=== PATIENT | male | born 1945 | race Caucasian/White ===

== ENCOUNTER → 2017-06-23 | Outpatient (CLI) | payer MEDICARE, BC ==
[~2017-06-23] MED LIST: ASCO100019 PO; ASPI325T17 PO; GLUC-113 PO; HYDR1TAB12 PO; MULT-257 PO; OXYC-306 PO
[2017-06-23 09:23] LABS: ALBUMIN 4.1 g/dL (3.4-5.0); ANION GAP 6 mmol/L (5-15); CALCIUM 8.7 mg/dL (8.5-10.1); CHLORIDE 107 mmol/L (98-107)
[2017-06-23 09:27] LABS: ALANINE AMINOTRANSFERASE 26 U/L (12-78); ALKALINE PHOSPHATASE 109 U/L (45-117); BILIRUBIN,TOTAL 1.2 mg/dL (0.2-1.0); CREATININE 0.77 mg/dL (0.7-1.3); TOTAL PROTEIN 7.6 g/dL (6.4-8.2)
[2017-06-23 09:52] LABS: MICROSCOPIC AUTO
[2017-06-23 09:54] LABS: CULTURE INDICATED? YES
[2017-06-23 09:57] LABS: BASOPHILS # (AUTO) 0.03 x10^3/uL (0-0.1); BASOPHILS % (AUTO) 1 % (0-1); EOSINOPHILS # (AUTO) 0.22 x10^3/uL (0-0.4); EOSINOPHILS % (AUTO) 4 % (1-7); LYMPHOCYTES # (AUTO) 1.37 x10^3/uL (1-3.4); LYMPHOCYTES % (AUTO) 25 % (22-44); MD NO; MEAN CORPUSCULAR HEMOGLOBIN 32.7 pg (27.5-34.5); MEAN CORPUSCULAR HGB CONC 34.2 g/dL (33.2-36.2); MEAN CORPUSCULAR VOLUME 95.7 fL (81-97); MONOCYTES # (AUTO) 0.56 x10^3/uL (0.2-0.8); MONOCYTES % (AUTO) 10 % (2-9); NEUTROPHILS # (AUTO) 3.32 x10^3/uL (1.8-6.8); NEUTROPHILS % (AUTO) 60 % (42-75); PLATELET COUNT 181 x10^3/uL (130-400); RED BLOOD COUNT 5.23 x10^6/uL (4.38-5.82); RED CELL DISTRIBUTION WIDTH 13.4 % (9.4-14.8)
== END | disposition home or self-care (01) ==
LOC: STAR 07:56
PROVIDERS: ATTEND Orthopaedic Surgery
DX: Z01.818 Encounter for other preprocedural examination (principal); M16.12 Unilateral primary osteoarthritis, left hip; R79.89 Other specified abnormal findings of blood chemistry; Z11.4 Encounter for screening for human immunodeficiency virus [HIV]; M25.559 Pain in unspecified hip; M51.36 Other intervertebral disc degeneration, lumbar region; I49.3 Ventricular premature depolarization
CPT/HCPCS: 36415; 80053; 81001; 85025; 86703; 87081; 87086; 87899; 93005; G0435

== ENCOUNTER 2017-06-27 07:09 | Inpatient (IN) | payer MEDICARE, BC ==
[~2017-06-27] VITALS: Ht 190.5 cm; Wt 105.2 kg
[~2017-06-27 07:09] MED LIST changes: +BACITRACIN 50,000 UNIT ONE; +EPINEPHRINE 1 MG/ML, 1ML ONE; +KETOROLAC 60 MG/2 ML ONE; +SODIUM CHLORIDE 0.9% 100 ML ONE; +TRANEXAMIC ACID 100 MG/ML, 10ML ONE; +morphine SULFATE/PF 1 MG/ML, 10ML ONE
[2017-06-27] MEDS ORDERED: VANCOMYCIN PMX 1GM/200ML 200 ML IV STA (07:33)
[2017-06-27] MEDS ORDERED: LACTATED RINGERS 1,000 ML IV SCH (07:35)
[2017-06-27 08:07] VITALS: BP 145/92
[2017-06-27] MEDS ORDERED: FENTANYL PF 250 MCG/5ML ONE (08:59)
[2017-06-27] MEDS ORDERED: MIDAZOLAM 1 MG/ML, 2ML ONE (08:59)
[2017-06-27] MEDS ORDERED: ROCURONIUM 10 MG/ML,10ML ONE (09:00)
[2017-06-27] MEDS ORDERED: PROPOFOL 10 MG/ML, 20ML ONE (09:00)
[2017-06-27] MEDS ORDERED: NEOSTIGMINE 1 MG/ML, 10ML ONE (09:01)
[2017-06-27] MEDS ORDERED: GLYCOPYRROLATE 0.4 MG/2 ML, 2ML ONE (09:01)
[2017-06-27] MEDS ORDERED: CEFAZOLIN 1,000 MG ONE ×2 (09:02)
[2017-06-27] MEDS ORDERED: SODIUM CHLORIDE 0.9% PF 10ML ONE (09:02)
[2017-06-27] MEDS ORDERED: ROPIvacaine/PF 0.2%, 20 ML ONE (09:28)
[2017-06-27] MEDS ORDERED: TRANEXAMIC ACID 1,000 MG in SODIUM CHLORIDE 0.9% 100 ML IV ONE (10:00)
[2017-06-27] MEDS ORDERED: HYDROmorphone 1 MG/ML, 1ML IV PRN (10:00)
[2017-06-27] MEDS ORDERED: LORazepam 2 MG/ML, 1ML IVPush PRN (10:00)
[2017-06-27] MEDS ORDERED: DIPHENHYDRAMINE 50 MG CAPSULE PO PRN (10:00)
[2017-06-27] MEDS ORDERED: ZOLPIDEM 5MG TABLET PO PRN (10:00)
[2017-06-27] MEDS ORDERED: morphine SULFATE 10 MG/ML, 1ML IVPush PRN (10:00)
[2017-06-27] MEDS ORDERED: hydrALAzine 20 MG/ML, 1ML IV PRN (10:00)
[2017-06-27] MEDS ORDERED: ONDANSETRON 2MG/ML, 2ML IVPush PRN ×2 (10:00)
[2017-06-27] MEDS ORDERED: OXYcodone 5 MG/5 ML ORAL.SOL UDC PO PRN (10:00)
[2017-06-27] MEDS ORDERED: LABETALOL 5MG/ML, 20ML IV PRN (10:00)
[2017-06-27] MEDS ORDERED: ACETAMINOPHEN 325 MG TABLET PO PRN ×2 (10:00)
[2017-06-27] MEDS ORDERED: PROMETHAZINE 25 MG/ML, 1ML IV PRN (10:00)
[2017-06-27] MEDS ORDERED: MEPERIDINE/PF 25MG/0.5ML IVPush PRN (10:00)
[2017-06-27] MEDS ORDERED: ONDANSETRON 2MG/ML, 2ML ONE (10:01)
[2017-06-27] MEDS ORDERED: DEXAMETHASONE 4 MG/ML, 1ML ONE ×2 (10:01)
[2017-06-27] MEDS ORDERED: FENTANYL PF 100 MCG/2ML ONE ×2 (10:45→12:07)
[2017-06-27] MEDS ORDERED: OXYcodone 5 MG/5 ML ORAL.SOL UDC ONE (12:07)
[2017-06-27] MEDS ORDERED: ACETAMINOPHEN 650 MG/20.3 ML UDC ONE (12:07)
[2017-06-27] MEDS: FENTANYL PF 100 MCG/2ML IV PRN ×2 (12:15→12:35)
[2017-06-27] MEDS ORDERED: KETOROLAC 30 MG/1 ML ONE (12:28)
[2017-06-27 14:48] VITALS: BP 122/79
[2017-06-27] MEDS: D5%-0.45% NACL 1,000 ML IV SCH ×2 (15:23→20:30)
[2017-06-27] MEDS: OXYcodone/APAP 7.5/325MG TABLET PO PRN ×2 (16:36→20:49)
[2017-06-27] MEDS: CEFAZOLIN PMX 1GM/50ML 50 ML IVPB SCH (17:37)
[2017-06-27 20:11] VITALS: BP 121/76
[2017-06-27 23:52] VITALS: BP 103/64
[2017-06-28] MEDS: CEFAZOLIN PMX 1GM/50ML 50 ML IVPB SCH ×2 (01:07→10:19)
[2017-06-28] MEDS: D5%-0.45% NACL 1,000 ML IV SCH ×3 (01:22→11:49)
[2017-06-28] MEDS: OXYcodone/APAP 7.5/325MG TABLET PO PRN ×2 (02:25→09:01)
[2017-06-28 05:08] VITALS: BP 105/65
[2017-06-28 07:03] VITALS: BP 121/74
[2017-06-28] MEDS ORDERED: ASPIRIN 325 MG TABLET EC PO SCH (08:00)
[2017-06-28] MEDS ORDERED: ASCORBIC ACID 500 MG TABLET PO SCH (09:00)
[2017-06-28] MEDS ORDERED: MULTIVITAMIN 1 TABLET PO SCH (09:00)
[2017-06-28] MEDS ORDERED: VANCOMYCIN PMX 1GM/200ML 200 ML IVPB ONE (09:00)
[2017-06-28 14:14] VITALS: BP 103/63
[2017-06-28 15:41] VITALS: BP 139/82
[2017-06-28] MEDS ORDERED: OXYC-302 PO (15:52)
[2017-06-28] MEDS ORDERED: OXYC-306 PO (16:28)
[2017-06-28] MEDS ORDERED: DOCUSATE 100 MG CAPSULE PO SCH (21:00)
== END 2017-06-28 16:39 | disposition home or self-care (01) | DRG 470 ==
LOC: ORIP 07:09 → 4NOR 13:07 → DCLOUNGE 06-28 16:24
PROVIDERS: ADMIT Orthopaedic Surgery; ATTEND Orthopaedic Surgery
PROC: 0SRB0JZ Replacement of Left Hip Joint with Synthetic Substitute, Open Approach (ICD-10-PCS; principal; 2017-06-27 09:30)
DX: M16.12 Unilateral primary osteoarthritis, left hip (principal)
CPT/HCPCS: 36415; 85018; 86850; 86900; C1713; J0171; J0690; J1100; J1885; J2250; J2274; J2405; J2704; J2710; J2795; J3010; J3370; C1776; J7120

== ENCOUNTER → 2017-11-10 | Outpatient (CLI) | payer MEDICARE, BC ==
[~2017-11-10] MED LIST changes: +ASPI-650 PO; -BACITRACIN 50,000 UNIT ONE; -EPINEPHRINE 1 MG/ML, 1ML ONE; -KETOROLAC 60 MG/2 ML ONE; +OXYC-302 PO; -SODIUM CHLORIDE 0.9% 100 ML ONE; -TRANEXAMIC ACID 100 MG/ML, 10ML ONE; -morphine SULFATE/PF 1 MG/ML, 10ML ONE
[2017-11-10 09:06] LABS: BASOPHILS # (AUTO) 0.04 x10^3/uL (0-0.1); BASOPHILS % (AUTO) 1 % (0-1); EOSINOPHILS # (AUTO) 0.12 x10^3/uL (0-0.4); EOSINOPHILS % (AUTO) 2 % (1-7); LYMPHOCYTES # (AUTO) 1.37 x10^3/uL (1-3.4); LYMPHOCYTES % (AUTO) 20 % (22-44); MD NO; MEAN CORPUSCULAR HEMOGLOBIN 31.4 pg (27.5-34.5); MEAN CORPUSCULAR HGB CONC 33.6 g/dL (33.2-36.2); MEAN CORPUSCULAR VOLUME 93.6 fL (81-97); MEAN PLATELET VOLUME 8.5 fL (7.4-10.4); MONOCYTES # (AUTO) 0.62 x10^3/uL (0.2-0.8); MONOCYTES % (AUTO) 9 % (2-9); NEUTROPHILS % (AUTO) 68 % (42-75); PLATELET COUNT 197 x10^3/uL (130-400); RED BLOOD COUNT 5.37 x10^6/uL (4.38-5.82); RED CELL DISTRIBUTION WIDTH 14.2 % (9.4-14.8)
[2017-11-10 09:09] LABS: CULTURE INDICATED? YES; MICROSCOPIC INDICATED
[2017-11-11 09:48] LABS: ALANINE AMINOTRANSFERASE 30 U/L (12-78); ALBUMIN 4.2 g/dL (3.4-5.0); ANION GAP 9 mmol/L (5-15); CALCIUM 8.6 mg/dL (8.5-10.1); CHLORIDE 106 mmol/L (98-107); CREATININE 0.96 mg/dL (0.7-1.3)
[2017-11-11 09:50] LABS: ALKALINE PHOSPHATASE 112 U/L (45-117); BILIRUBIN,TOTAL 0.9 mg/dL (0.2-1.0); TOTAL PROTEIN 7.5 g/dL (6.4-8.2)
== END | disposition home or self-care (01) ==
LOC: STAR 08:00
PROVIDERS: ATTEND Orthopaedic Surgery
DX: Z01.818 Encounter for other preprocedural examination (principal); M25.552 Pain in left hip; M16.12 Unilateral primary osteoarthritis, left hip; M22.41 Chondromalacia patellae, right knee; M75.122 Complete rotator cuff tear or rupture of left shoulder, not specified as traumatic; M25.562 Pain in left knee; M51.36 Other intervertebral disc degeneration, lumbar region; M17.9 Osteoarthritis of knee, unspecified; Z96.652 Presence of left artificial knee joint
CPT/HCPCS: 36415; 80053; 81001; 85025; 87081; 87086; 87806; 93005; G0475

== ENCOUNTER 2017-11-14 07:56 | Inpatient (IN) | payer MEDICARE, BC ==
[~2017-11-14] VITALS: Ht 190.5 cm; Wt 107.0 kg
[2017-11-14] MEDS ORDERED: VANCOMYCIN PMX 1GM/200ML 200 ML IV STA (09:01)
[2017-11-14] MEDS ORDERED: LACTATED RINGERS 1,000 ML IV SCH (09:18)
[2017-11-14] MEDS ORDERED: FAMOTIDINE 20 MG TABLET PO ONE (09:30)
[2017-11-14] MEDS ORDERED: GABAPENTIN 300 MG CAPSULE PO ONE (09:30)
[2017-11-14] MEDS ORDERED: OXYcodone IR 5MG TABLET PO ONE (09:30)
[2017-11-14] MEDS ORDERED: ONDANSETRON ODT 8 MG PO ONE (09:30)
[2017-11-14] MEDS ORDERED: ACETAMINOPHEN 500 MG TABLET PO ONE (09:30)
[2017-11-14 09:46] VITALS: BP 136/92
[2017-11-14] MEDS ORDERED: FENTANYL PF 100 MCG/2ML ONE (11:00)
[2017-11-14] MEDS ORDERED: MIDAZOLAM 1 MG/ML, 2ML ONE (11:00)
[2017-11-14] MEDS ORDERED: ROCURONIUM 10MG/ML,5ML ONE (12:13)
[2017-11-14] MEDS ORDERED: KETOROLAC 60 MG/2 ML ONE (12:18)
[2017-11-14] MEDS ORDERED: EPINEPHRINE 1 MG/ML, 1ML ONE (12:19)
[2017-11-14] MEDS ORDERED: SODIUM CHLORIDE 0.9% 100 ML ONE (12:19)
[2017-11-14] MEDS ORDERED: BACITRACIN 50,000 UNIT ONE (12:19)
[2017-11-14] MEDS ORDERED: TRANEXAMIC ACID 100 MG/ML, 10ML ONE (12:19)
[2017-11-14] MEDS ORDERED: ROPIvacaine/PF 0.2%, 20 ML ONE (12:19)
[2017-11-14] MEDS ORDERED: morphine SULFATE/PF 1 MG/ML, 10ML ONE (12:20)
[2017-11-14] MEDS: CEFAZOLIN PMX 1GM/50ML 50 ML IVPB SCH ×2 (12:30→20:32)
[2017-11-14] MEDS ORDERED: ACETAMINOPHEN 325 MG TABLET PO PRN (12:30)
[2017-11-14] MEDS ORDERED: DIPHENHYDRAMINE 50 MG CAPSULE PO PRN (12:30)
[2017-11-14] MEDS ORDERED: morphine SULFATE 10 MG/ML, 1ML IVPush PRN (12:30)
[2017-11-14] MEDS ORDERED: VANCOMYCIN PMX 1GM/200ML 200 ML IVPB ONE (12:30)
[2017-11-14] MEDS ORDERED: TRANEXAMIC ACID 1,000 MG in SODIUM CHLORIDE 0.9% 100 ML IV ONE (12:30)
[2017-11-14] MEDS ORDERED: ZOLPIDEM 5MG TABLET PO PRN (12:30)
[2017-11-14] MEDS ORDERED: ONDANSETRON 2MG/ML, 2ML IVPush PRN (12:30)
[2017-11-14] MEDS ORDERED: LORazepam 2 MG/ML, 1ML IVPush PRN (12:30)
[2017-11-14] MEDS ORDERED: OXYcodone/APAP 7.5/325MG TABLET PO PRN (12:30)
[2017-11-14] MEDS ORDERED: ALBUTEROL SULFATE 2.5 MG/3 ML NPPB PRN (13:00)
[2017-11-14] MEDS ORDERED: MEPERIDINE/PF 25MG/0.5ML IVPush PRN (13:00)
[2017-11-14] MEDS ORDERED: HYDROcodone/APAP 7.5-325MG/15ML UDC PO PRN (13:00)
[2017-11-14] MEDS ORDERED: MIDAZOLAM 1 MG/ML, 2ML IV PRN (13:00)
[2017-11-14] MEDS ORDERED: LABETALOL 5MG/ML, 20ML IV PRN (13:00)
[2017-11-14] MEDS ORDERED: OXYcodone 5 MG/5 ML ORAL.SOL UDC PO PRN (13:00)
[2017-11-14] MEDS ORDERED: HYDROmorphone 1 MG/ML, 1ML IV PRN (13:00)
[2017-11-14] MEDS ORDERED: PROMETHAZINE 25 MG/ML, 1ML IV PRN (13:00)
[2017-11-14] MEDS ORDERED: FENTANYL PF 100 MCG/2ML IV PRN (13:00)
[2017-11-14] MEDS ORDERED: HALOPERIDOL 5 MG/ML IV PRN (13:00)
[2017-11-14] MEDS ORDERED: EPHEDRINE 50 MG/ML, 1ML IVPush PRN (13:00)
[2017-11-14] MEDS ORDERED: hydrALAzine 20 MG/ML, 1ML IV PRN (13:00)
[2017-11-14] MEDS ORDERED: ONDANSETRON 2MG/ML, 2ML ONE (13:28)
[2017-11-14] MEDS ORDERED: SUCCINYLCHOLINE 20 MG/ML, 10ML ONE (13:28)
[2017-11-14] MEDS ORDERED: GLYCOPYRROLATE 0.2MG/1ML, 5ML ONE (13:28)
[2017-11-14] MEDS ORDERED: CEFAZOLIN 1,000 MG ONE (13:28)
[2017-11-14] MEDS ORDERED: NEOSTIGMINE 1 MG/ML, 10ML ONE (13:28)
[2017-11-14] MEDS ORDERED: PROPOFOL 10 MG/ML, 20ML ONE (13:28)
[2017-11-14] MEDS ORDERED: DEXAMETHASONE 4 MG/ML, 1ML ONE (13:28)
[2017-11-14] MEDS: D5%-0.45% NACL 1,000 ML IV SCH ×2 (16:21→20:34)
[2017-11-14 20:14] VITALS: BP 121/77
[2017-11-15 00:19] VITALS: BP 113/70
[2017-11-15] MEDS: D5%-0.45% NACL 1,000 ML IV SCH ×2 (02:30→04:31)
[2017-11-15 04:00] VITALS: BP 117/70
[2017-11-15] MEDS: CEFAZOLIN PMX 1GM/50ML 50 ML IVPB SCH (04:34)
[2017-11-15 08:21] VITALS: BP 111/72
[2017-11-15] MEDS ORDERED: VANCOMYCIN PMX 1GM/200ML 200 ML IVPB ONE (10:00)
[2017-11-15 12:28] VITALS: BP 108/68
[2017-11-15] MEDS ORDERED: ASPIRIN 325 MG TABLET EC PO SCH (17:00)
[2017-11-15] MEDS ORDERED: DOCUSATE 100 MG CAPSULE PO SCH (21:00)
== END 2017-11-15 15:04 | disposition home or self-care (01) | DRG 468 ==
LOC: ORIP 08:45 → 4NOR 14:50 → DCLOUNGE 11-15 14:55
PROVIDERS: ADMIT Orthopaedic Surgery; ATTEND Orthopaedic Surgery
PROC: 0SPS0JZ Removal of Synthetic Substitute from Left Hip Joint, Femoral Surface, Open Approach (ICD-10-PCS; 2017-11-14)
PROC: 0SRS01Z Replacement of Left Hip Joint, Femoral Surface with Metal Synthetic Substitute, Open Approach (ICD-10-PCS; principal; 2017-11-14 11:20)
DX: T84.021A Dislocation of internal left hip prosthesis, initial encounter (principal); Y79.2 Prosthetic and other implants, materials and accessory orthopedic devices associated with adverse incidents; Y92.89 Other specified places as the place of occurrence of the external cause
CPT/HCPCS: 36415; 85018; 86850; 86900; J0171; J0690; J1100; J1885; J2250; J2274; J2405; J2704; J2710; J2795; J3010; J3370; J3490; Q0162; J0330; J7120